=== PATIENT | male | born 1955 | race Caucasian/White ===

== ENCOUNTER → 2021-11-18 | Outpatient (CLI) | payer OTHER ==
[~2021-11-18] MED LIST: CENTRUM ADULTS1 EACH PO; FENTANYL1 EAC3 TD; FLOMAX0.4 MG PO; IBUPROFEN600 M1 PO; LEVOFLOXACIN750 MG PO; ONDANSETRON HYDR4 MG PO; PRILOSEC OTC20 MG PO; ROXICODONE 55 MG/TAB PO; TEMAZEPAM PO
== END ==
LOC: RAD 09:00
DX: C25.0 Malignant neoplasm of head of pancreas (principal); J98.11 Atelectasis; J43.9 Emphysema, unspecified
CPT/HCPCS: Q9967

== ENCOUNTER 2021-12-15 13:08 | Emergency (ER) | payer OTHER ==
[~2021-12-15] VITALS: Ht 177.8 cm; Wt 63.6 kg
[2021-12-15] MEDS ORDERED: FENTANYL1 EAC3 TD (13:39)
[2021-12-15] MEDS ORDERED: TEMAZEPAM PO (13:39)
[2021-12-15] MEDS ORDERED: ROXICODONE 55 MG/TAB PO ×2 (13:40→16:02)
[2021-12-15 14:05] LABS: ALBUMIN 3.8 g/dL (3.4-4.8)
[2021-12-15 14:06] LABS: POTASSIUM 3.9 mmol/L (3.5-5.1)
[2021-12-15 14:07] LABS: CALCIUM 9.5 mg/dL (8.3-10.5)
[2021-12-15 14:08] LABS: TOTAL PROTEIN 7.6 g/dL (6.2-8.1)
[2021-12-15 14:10] LABS: TOTAL BILIRUBIN 0.7 mg/dL (0.2-1.2)
[2021-12-15 14:21] LABS: BASO # 0.08 K/mm3 (0.02-0.10); EOS # 0.12 K/mm3 (0.04-0.40); EOS % 1.3 % (0.0-4.0); HEMATOCRIT 44.5 % (42.0-52.0); HEMOGLOBIN 14.9 g/dL (13.5-18.0); MEAN CELL VOLUME 95 fl (78-100); MEAN CORPUSCULAR HEMOGLOBIN 32 pg (27-31); MEAN CORPUSCULAR HGB CONC 34 g/dL (33-37); MEAN PLATELET VOLUME 9.5 fl (7.4-10.4); MONO # 0.78 K/mm3 (0.20-0.80); NEU # 5.38 K/mm3 (1.40-6.50); PLATELET COUNT 487 K/mm3 (130-400); RED BLOOD COUNT 4.71 M/mm3 (4.20-5.60); RED CELL DISTRIBUTION WIDTH 13.2 % (11.5-14.5); WHITE BLOOD COUNT 9.2 K/mm3 (4.8-10.8)
[2021-12-15 15:08] LABS: URINE APPEARANCE CLEAR; URINE BILIRUBIN NEGATIVE (NEGATIVE); URINE BLOOD NEGATIVE (NEGATIVE); URINE COLOR YELLOW; URINE GLUCOSE NEGATIVE (NEGATIVE); URINE KETONE NEGATIVE (NEGATIVE); URINE LEUKOCYTE ESTERASE NEGATIVE (NEGATIVE); URINE NITRATE NEGATIVE (NEGATIVE); URINE PROTEIN(semi-quant) 1+ (NEGATIVE); URINE UROBILINOGEN 1 mg/dL (NORMAL)
[2021-12-15 15:09] LABS: URINE MUCUS PRESENT (NOT PRESENT)
[2021-12-15] MEDS ORDERED: LEVOFLOXACIN750 MG PO (15:59)
[2021-12-15 16:08] VITALS: BP 103/67
== END 2021-12-15 16:23 | disposition home or self-care (01) ==
LOC: ED 13:08
PROVIDERS: Nurse Practitioner
DX: T81.49XA Infection following a procedure, other surgical site, initial encounter (principal); T81.30XA Disruption of wound, unspecified, initial encounter; Z98.890 Other specified postprocedural states; Z20.822 Contact with and (suspected) exposure to COVID-19
CPT/HCPCS: J2270; J2405; Q9967

== ENCOUNTER → 2022-01-16 | Outpatient (CLI) | payer OTHER ==
[~2022-01-16] MED LIST changes: -CENTRUM ADULTS1 EACH PO; -FLOMAX0.4 MG PO; -IBUPROFEN600 M1 PO; -ONDANSETRON HYDR4 MG PO; -PRILOSEC OTC20 MG PO
[2022-01-16 11:42] LABS: BASO # 0.03 K/mm3 (0.02-0.10); EOS # 0.21 K/mm3 (0.04-0.40); EOS % 3.4 % (0.0-4.0); HEMATOCRIT 40.9 % (42.0-52.0); HEMOGLOBIN 13.3 g/dL (13.5-18.0); LYMPH# 2.04 K/mm3 (1.50-4.00); MEAN CELL VOLUME 96 fl (78-100); MEAN CORPUSCULAR HEMOGLOBIN 31 pg (27-31); MEAN CORPUSCULAR HGB CONC 33 g/dL (33-37); MEAN PLATELET VOLUME 9.4 fl (7.4-10.4); MONO # 0.69 K/mm3 (0.20-0.80); NEU # 3.28 K/mm3 (1.40-6.50); PLATELET COUNT 230 K/mm3 (130-400); RED BLOOD COUNT 4.25 M/mm3 (4.20-5.60); RED CELL DISTRIBUTION WIDTH 14.4 % (11.5-14.5); WHITE BLOOD COUNT 6.3 K/mm3 (4.8-10.8)
[2022-01-16 11:59] LABS: POTASSIUM 3.9 mmol/L (3.5-5.1)
[2022-01-16 12:00] LABS: CALCIUM 8.2 mg/dL (8.3-10.5)
[2022-01-16 12:01] LABS: TOTAL PROTEIN 5.3 g/dL (6.2-8.1)
[2022-01-16 12:03] LABS: TOTAL BILIRUBIN 0.4 mg/dL (0.2-1.2)
== END ==
LOC: LAB 11:19
PROVIDERS: Internal Medicine
DX: C25.0 Malignant neoplasm of head of pancreas (principal)

== ENCOUNTER → 2022-01-22 | Outpatient (CLI) | payer OTHER ==
[~2022-01-22] VITALS: Ht 177.8 cm; Wt 63.6 kg
== END ==
LOC: AMSURD 12:42
DX: C25.0 Malignant neoplasm of head of pancreas (principal)
CPT/HCPCS: J1644

== ENCOUNTER → 2022-01-30 | Outpatient (CLI) | payer OTHER ==
[2022-01-30 13:44] LABS: HEMATOCRIT 42.8 % (42.0-52.0); HEMOGLOBIN 14.3 g/dL (13.5-18.0); MEAN PLATELET VOLUME 9.5 fl (7.4-10.4); RED BLOOD COUNT 4.64 M/mm3 (4.20-5.60); RED CELL DISTRIBUTION WIDTH 14.3 % (11.5-14.5); WHITE BLOOD COUNT 6.1 K/mm3 (4.8-10.8)
== END ==
LOC: LAB 13:31
PROVIDERS: Internal Medicine
DX: C25.0 Malignant neoplasm of head of pancreas (principal)

== ENCOUNTER → 2022-02-13 | Outpatient (CLI) | payer OTHER ==
[2022-02-13 13:34] LABS: BASO # 0.03 K/mm3 (0.02-0.10); EOS # 0.11 K/mm3 (0.04-0.40); EOS % 2.4 % (0.0-4.0); HEMATOCRIT 42.2 % (42.0-52.0); HEMOGLOBIN 14.1 g/dL (13.5-18.0); LYMPH# 1.94 K/mm3 (1.50-4.00); MEAN CELL VOLUME 92 fl (78-100); MEAN CORPUSCULAR HEMOGLOBIN 31 pg (27-31); MEAN CORPUSCULAR HGB CONC 33 g/dL (33-37); MONO # 0.47 K/mm3 (0.20-0.80); NEU # 2.01 K/mm3 (1.40-6.50); PLATELET COUNT 185 K/mm3 (130-400); RED BLOOD COUNT 4.58 M/mm3 (4.20-5.60); RED CELL DISTRIBUTION WIDTH 15.2 % (11.5-14.5); WHITE BLOOD COUNT 4.6 K/mm3 (4.8-10.8)
[2022-02-13 13:41] LABS: ALBUMIN 3.7 g/dL (3.4-4.8); POTASSIUM 3.6 mmol/L (3.5-5.1)
[2022-02-13 13:42] LABS: CALCIUM 9.2 mg/dL (8.3-10.5)
[2022-02-13 13:43] LABS: TOTAL PROTEIN 6.4 g/dL (6.2-8.1)
[2022-02-13 13:45] LABS: TOTAL BILIRUBIN 0.4 mg/dL (0.2-1.2)
== END ==
LOC: LAB 13:19
PROVIDERS: Internal Medicine
DX: C25.0 Malignant neoplasm of head of pancreas (principal)

== ENCOUNTER → 2022-03-03 | Outpatient (CLI) | payer OTHER ==
[~2022-03-03] MED LIST changes: +CENTRUM ADULTS1 EACH PO; +FLOMAX0.4 MG PO; +IBUPROFEN600 M1 PO; +ONDANSETRON HYDR4 MG PO; +PRILOSEC OTC20 MG PO
[2022-03-03 16:10] LABS: BASO # 0.05 K/mm3 (0.02-0.10); EOS # 0.05 K/mm3 (0.04-0.40); EOS % 1.4 % (0.0-4.0); HEMOGLOBIN 12.8 g/dL (13.5-18.0); LYMPH# 2.01 K/mm3 (1.50-4.00); MEAN CELL VOLUME 94 fl (78-100); MEAN CORPUSCULAR HEMOGLOBIN 31 pg (27-31); MEAN CORPUSCULAR HGB CONC 33 g/dL (33-37); MEAN PLATELET VOLUME 9.5 fl (7.4-10.4); MONO # 0.42 K/mm3 (0.20-0.80); NEU # 1.07 K/mm3 (1.40-6.50); PLATELET COUNT 217 K/mm3 (130-400); RED BLOOD COUNT 4.16 M/mm3 (4.20-5.60); RED CELL DISTRIBUTION WIDTH 16.6 % (11.5-14.5); WHITE BLOOD COUNT 3.6 K/mm3 (4.8-10.8)
[2022-03-03 16:34] LABS: ALBUMIN 3.2 g/dL (3.4-4.8); POTASSIUM 3.5 mmol/L (3.5-5.1)
[2022-03-03 16:36] LABS: CALCIUM 8.8 mg/dL (8.3-10.5)
[2022-03-03 16:37] LABS: TOTAL PROTEIN 5.9 g/dL (6.2-8.1)
[2022-03-03 16:39] LABS: TOTAL BILIRUBIN 0.3 mg/dL (0.2-1.2)
== END ==
LOC: LAB 15:52
PROVIDERS: Internal Medicine
DX: C25.9 Malignant neoplasm of pancreas, unspecified (principal)

== ENCOUNTER → 2022-03-08 | Outpatient (CLI) | payer OTHER ==
[~2022-03-08] VITALS: Ht 177.8 cm; Wt 63.6 kg
[2022-03-08 13:10] VITALS: BP 85/95
== END ==
LOC: AMSURD 10:29
DX: C25.9 Malignant neoplasm of pancreas, unspecified (principal)
CPT/HCPCS: J1644

== ENCOUNTER → 2022-03-17 | Outpatient (CLI) | payer OTHER ==
[2022-03-17 16:28] LABS: ALBUMIN 3.3 g/dL (3.4-4.8); POTASSIUM 3.6 mmol/L (3.5-5.1)
[2022-03-17 16:30] LABS: CALCIUM 8.6 mg/dL (8.3-10.5)
[2022-03-17 16:31] LABS: TOTAL PROTEIN 5.8 g/dL (6.2-8.1)
[2022-03-17 16:33] LABS: TOTAL BILIRUBIN 0.3 mg/dL (0.2-1.2)
[2022-03-17 16:43] LABS: BASO # 0.04 K/mm3 (0.02-0.10); EOS # 0.05 K/mm3 (0.04-0.40); HEMOGLOBIN 12.7 g/dL (13.5-18.0); LYMPH# 2.67 K/mm3 (1.50-4.00); MEAN CELL VOLUME 95 fl (78-100); MEAN CORPUSCULAR HEMOGLOBIN 32 pg (27-31); MEAN CORPUSCULAR HGB CONC 33 g/dL (33-37); MEAN PLATELET VOLUME 9.7 fl (7.4-10.4); MONO # 0.52 K/mm3 (0.20-0.80); NEU # 1.77 K/mm3 (1.40-6.50); PLATELET COUNT 183 K/mm3 (130-400); RED BLOOD COUNT 4.02 M/mm3 (4.20-5.60); RED CELL DISTRIBUTION WIDTH 17.7 % (11.5-14.5); WHITE BLOOD COUNT 5.1 K/mm3 (4.8-10.8)
== END ==
LOC: LAB 16:11
PROVIDERS: Internal Medicine
DX: C25.9 Malignant neoplasm of pancreas, unspecified (principal)

== ENCOUNTER → 2022-03-22 | Outpatient (CLI) | payer OTHER ==
[~2022-03-22] VITALS: Ht 177.8 cm; Wt 63.6 kg
[2022-03-22 13:30] VITALS: BP 94/76
== END ==
LOC: AMSURD 03-20 18:40
DX: C25.0 Malignant neoplasm of head of pancreas (principal)
CPT/HCPCS: J1644

== ENCOUNTER → 2022-03-30 | Outpatient (CLI) | payer OTHER ==
[2022-03-30 10:32] LABS: BASO # 0.03 K/mm3 (0.02-0.10); EOS # 0.09 K/mm3 (0.04-0.40); EOS % 1.8 % (0.0-4.0); HEMATOCRIT 38.6 % (42.0-52.0); HEMOGLOBIN 12.5 g/dL (13.5-18.0); LYMPH# 1.99 K/mm3 (1.50-4.00); MEAN CELL VOLUME 98 fl (78-100); MEAN CORPUSCULAR HEMOGLOBIN 32 pg (27-31); MEAN CORPUSCULAR HGB CONC 32 g/dL (33-37); MEAN PLATELET VOLUME 9.8 fl (7.4-10.4); MONO # 0.63 K/mm3 (0.20-0.80); NEU # 2.13 K/mm3 (1.40-6.50); PLATELET COUNT 170 K/mm3 (130-400); RED BLOOD COUNT 3.94 M/mm3 (4.20-5.60); RED CELL DISTRIBUTION WIDTH 18.5 % (11.5-14.5); WHITE BLOOD COUNT 4.9 K/mm3 (4.8-10.8)
[2022-03-30 10:36] LABS: ALBUMIN 3.2 g/dL (3.4-4.8); POTASSIUM 3.8 mmol/L (3.5-5.1)
[2022-03-30 10:38] LABS: CALCIUM 8.9 mg/dL (8.3-10.5)
[2022-03-30 10:39] LABS: TOTAL PROTEIN 5.8 g/dL (6.2-8.1)
[2022-03-30 14:05] LABS: TOTAL BILIRUBIN 0.2 mg/dL (0.2-1.2)
== END ==
LOC: LAB 08:48
PROVIDERS: Internal Medicine
DX: C25.9 Malignant neoplasm of pancreas, unspecified (principal)

== ENCOUNTER → 2022-04-05 | Outpatient (CLI) | payer OTHER ==
[~2022-04-05] VITALS: Ht 177.8 cm; Wt 63.6 kg
[2022-04-05 14:24] VITALS: BP 93/61
== END ==
LOC: AMSURD 13:56
DX: Z45.2 Encounter for adjustment and management of vascular access device (principal)
CPT/HCPCS: J1644

== ENCOUNTER → 2022-04-14 | Outpatient (CLI) | payer OTHER | LOC: LAB 11:36 | DX: C25.0 Malignant neoplasm of head of pancreas (principal) ==

== ENCOUNTER → 2022-04-15 | Outpatient (CLI) | payer OTHER | LOC: RAD 08:47 | DX: C25.9 Malignant neoplasm of pancreas, unspecified (principal) | CPT/HCPCS: J1644; Q9967 ==

== ENCOUNTER → 2022-04-20 | Outpatient (CLI) | payer OTHER ==
[2022-04-20 11:44] LABS: BASO # 0.03 K/mm3 (0.02-0.10); EOS # 0.05 K/mm3 (0.04-0.40); EOS % 1.4 % (0.0-4.0); HEMATOCRIT 39.6 % (42.0-52.0); LYMPH# 1.49 K/mm3 (1.50-4.00); MEAN CELL VOLUME 101 fl (78-100); MEAN CORPUSCULAR HEMOGLOBIN 33 pg (27-31); MEAN CORPUSCULAR HGB CONC 33 g/dL (33-37); MEAN PLATELET VOLUME 9.4 fl (7.4-10.4); MONO # 0.56 K/mm3 (0.20-0.80); NEU # 1.32 K/mm3 (1.40-6.50); PLATELET COUNT 178 K/mm3 (130-400); RED BLOOD COUNT 3.93 M/mm3 (4.20-5.60); RED CELL DISTRIBUTION WIDTH 18.7 % (11.5-14.5); WHITE BLOOD COUNT 3.5 K/mm3 (4.8-10.8)
[2022-04-20 11:55] LABS: ALBUMIN 3.3 g/dL (3.4-4.8)
[2022-04-20 11:56] LABS: POTASSIUM 4.3 mmol/L (3.5-5.1)
[2022-04-20 11:58] LABS: TOTAL PROTEIN 5.8 g/dL (6.2-8.1)
[2022-04-20 12:00] LABS: TOTAL BILIRUBIN 0.3 mg/dL (0.2-1.2)
== END ==
LOC: LAB 11:16
PROVIDERS: Internal Medicine
DX: C25.9 Malignant neoplasm of pancreas, unspecified (principal)

== ENCOUNTER → 2022-05-04 | Outpatient (CLI) | payer OTHER ==
[2022-05-04 13:31] LABS: HEMATOCRIT 33.8 % (42.0-52.0); HEMOGLOBIN 11.3 g/dL (13.5-18.0); MEAN PLATELET VOLUME 9.7 fl (7.4-10.4); RED BLOOD COUNT 3.37 M/mm3 (4.20-5.60); RED CELL DISTRIBUTION WIDTH 16.1 % (11.5-14.5); WHITE BLOOD COUNT 3.9 K/mm3 (4.8-10.8)
[2022-05-04 13:41] LABS: ALBUMIN 3.3 g/dL (3.4-4.8)
[2022-05-04 13:42] LABS: POTASSIUM 3.5 mmol/L (3.5-5.1)
[2022-05-04 13:43] LABS: CALCIUM 8.7 mg/dL (8.3-10.5)
[2022-05-04 13:44] LABS: TOTAL PROTEIN 5.7 g/dL (6.2-8.1)
[2022-05-04 13:46] LABS: TOTAL BILIRUBIN 0.3 mg/dL (0.2-1.2)
== END ==
LOC: LAB 13:14
PROVIDERS: Internal Medicine
DX: C25.0 Malignant neoplasm of head of pancreas (principal)

== ENCOUNTER 2022-05-10 12:23 | Outpatient (RCR) | payer OTHER ==
[~2022-05-10] VITALS: Ht 177.8 cm; Wt 63.6 kg
== END 2022-05-14 | disposition home or self-care (01) ==
LOC: AMSURD
DX: C25.0 Malignant neoplasm of head of pancreas (principal)
CPT/HCPCS: J1644

== ENCOUNTER → 2022-05-19 | Outpatient (CLI) | payer OTHER ==
[2022-05-19 12:13] LABS: HEMATOCRIT 34.5 % (42.0-52.0); HEMOGLOBIN 11.6 g/dL (13.5-18.0); MEAN PLATELET VOLUME 9.8 fl (7.4-10.4); RED BLOOD COUNT 3.38 M/mm3 (4.20-5.60); WHITE BLOOD COUNT 5.2 K/mm3 (4.8-10.8)
== END ==
LOC: LAB 11:59
PROVIDERS: Internal Medicine
DX: C25.0 Malignant neoplasm of head of pancreas (principal)

== ENCOUNTER → 2022-06-01 | Outpatient (CLI) | payer OTHER ==
[2022-06-01 12:53] LABS: BASO # 0.02 K/mm3 (0.02-0.10); EOS # 0.07 K/mm3 (0.04-0.40); EOS % 1.9 % (0.0-4.0); HEMOGLOBIN 12.1 g/dL (13.5-18.0); LYMPH# 1.81 K/mm3 (1.50-4.00); MEAN CELL VOLUME 104 fl (78-100); MEAN CORPUSCULAR HEMOGLOBIN 34 pg (27-31); MEAN CORPUSCULAR HGB CONC 33 g/dL (33-37); MEAN PLATELET VOLUME 9.9 fl (7.4-10.4); MONO # 0.42 K/mm3 (0.20-0.80); NEU # 1.42 K/mm3 (1.40-6.50); PLATELET COUNT 122 K/mm3 (130-400); RED BLOOD COUNT 3.57 M/mm3 (4.20-5.60); RED CELL DISTRIBUTION WIDTH 14.6 % (11.5-14.5); WHITE BLOOD COUNT 3.8 K/mm3 (4.8-10.8)
[2022-06-01 13:07] LABS: ALBUMIN 3.4 g/dL (3.4-4.8); POTASSIUM 4.3 mmol/L (3.5-5.1)
[2022-06-01 13:10] LABS: TOTAL PROTEIN 5.8 g/dL (6.2-8.1)
[2022-06-01 13:12] LABS: TOTAL BILIRUBIN 0.3 mg/dL (0.2-1.2)
== END ==
LOC: LAB 12:42
PROVIDERS: Internal Medicine
DX: C25.0 Malignant neoplasm of head of pancreas (principal)

== ENCOUNTER 2022-06-07 12:06 | Outpatient (RCR) | payer OTHER ==
[2022-05-24 12:30] VITALS: BP 88/50
[~2022-06-07] VITALS: Ht 177.8 cm; Wt 63.6 kg
[2022-06-07 12:32] VITALS: BP 108/66
== END 2022-06-14 | disposition home or self-care (01) ==
LOC: AMSURD
DX: C25.0 Malignant neoplasm of head of pancreas (principal)
CPT/HCPCS: J1644

== ENCOUNTER → 2022-06-15 | Outpatient (CLI) | payer OTHER ==
[2022-06-15 11:37] LABS: BASO # 0.01 K/mm3 (0.02-0.10); EOS # 0.02 K/mm3 (0.04-0.40); EOS % 0.3 % (0.0-4.0); HEMATOCRIT 37.6 % (42.0-52.0); HEMOGLOBIN 12.5 g/dL (13.5-18.0); LYMPH# 1.81 K/mm3 (1.50-4.00); MEAN CELL VOLUME 102 fl (78-100); MEAN CORPUSCULAR HEMOGLOBIN 34 pg (27-31); MEAN CORPUSCULAR HGB CONC 33 g/dL (33-37); MEAN PLATELET VOLUME 9.5 fl (7.4-10.4); MONO # 0.72 K/mm3 (0.20-0.80); NEU # 3.92 K/mm3 (1.40-6.50); PLATELET COUNT 117 K/mm3 (130-400); RED BLOOD COUNT 3.69 M/mm3 (4.20-5.60); RED CELL DISTRIBUTION WIDTH 14.7 % (11.5-14.5); WHITE BLOOD COUNT 6.5 K/mm3 (4.8-10.8)
[2022-06-15 11:46] LABS: ALBUMIN 3.5 g/dL (3.4-4.8); POTASSIUM 4.3 mmol/L (3.5-5.1)
[2022-06-15 11:47] LABS: CALCIUM 8.9 mg/dL (8.3-10.5)
[2022-06-15 11:48] LABS: TOTAL PROTEIN 6.2 g/dL (6.2-8.1)
[2022-06-15 11:50] LABS: TOTAL BILIRUBIN 0.4 mg/dL (0.2-1.2)
== END ==
LOC: LAB 11:19
PROVIDERS: Internal Medicine
DX: C25.0 Malignant neoplasm of head of pancreas (principal)

== ENCOUNTER → 2022-06-21 | Outpatient (CLI) | payer OTHER, MEDICARE ==
[~2022-06-21] VITALS: Ht 177.8 cm; Wt 63.6 kg
[2022-06-21 11:35] VITALS: BP 90/75
== END ==
LOC: AMSURD 11:17
DX: C25.0 Malignant neoplasm of head of pancreas (principal)
CPT/HCPCS: J1644

== ENCOUNTER → 2022-06-29 | Outpatient (CLI) | payer OTHER, MEDICARE ==
[2022-06-29 12:45] LABS: ALBUMIN 3.4 g/dL (3.4-4.8); POTASSIUM 3.6 mmol/L (3.5-5.1)
[2022-06-29 12:47] LABS: CALCIUM 8.6 mg/dL (8.3-10.5)
[2022-06-29 12:48] LABS: TOTAL PROTEIN 6.2 g/dL (6.2-8.1)
[2022-06-29 13:07] LABS: BASO # 0.04 K/mm3 (0.02-0.10); EOS # 0.06 K/mm3 (0.04-0.40); EOS % 1.6 % (0.0-4.0); HEMATOCRIT 38.7 % (42.0-52.0); HEMOGLOBIN 12.7 g/dL (13.5-18.0); LYMPH# 1.78 K/mm3 (1.50-4.00); MEAN CELL VOLUME 103 fl (78-100); MEAN CORPUSCULAR HEMOGLOBIN 34 pg (27-31); MEAN CORPUSCULAR HGB CONC 33 g/dL (33-37); MEAN PLATELET VOLUME 10.1 fl (7.4-10.4); MONO # 0.46 K/mm3 (0.20-0.80); NEU # 1.37 K/mm3 (1.40-6.50); PLATELET COUNT 140 K/mm3 (130-400); RED BLOOD COUNT 3.75 M/mm3 (4.20-5.60); RED CELL DISTRIBUTION WIDTH 14.8 % (11.5-14.5); WHITE BLOOD COUNT 3.7 K/mm3 (4.8-10.8)
[2022-06-29 14:19] LABS: TOTAL BILIRUBIN 0.3 mg/dL (0.2-1.2)
== END ==
LOC: LAB 12:04
PROVIDERS: Internal Medicine
DX: C25.0 Malignant neoplasm of head of pancreas (principal)

== ENCOUNTER → 2022-07-05 | Outpatient (CLI) | payer OTHER, MEDICARE ==
[~2022-07-05] VITALS: Ht 177.8 cm; Wt 63.6 kg
== END ==
LOC: AMSURD 10:48
DX: C25.0 Malignant neoplasm of head of pancreas (principal)
CPT/HCPCS: J1644

== ENCOUNTER → 2022-07-09 | Outpatient (CLI) | payer OTHER, MEDICARE ==
[2022-07-09 09:19] LABS: HEMATOCRIT 38.7 % (42.0-52.0); HEMOGLOBIN 12.7 g/dL (13.5-18.0); MEAN CELL VOLUME 104 fl (78-100); MEAN CORPUSCULAR HEMOGLOBIN 34 pg (27-31); MEAN CORPUSCULAR HGB CONC 33 g/dL (33-37); MEAN PLATELET VOLUME 9.5 fl (7.4-10.4); PLATELET COUNT 147 K/mm3 (130-400); RED BLOOD COUNT 3.74 M/mm3 (4.20-5.60); RED CELL DISTRIBUTION WIDTH 14.6 % (11.5-14.5); WHITE BLOOD COUNT 3.1 K/mm3 (4.8-10.8)
[2022-07-09 09:29] LABS: ALBUMIN 3.3 g/dL (3.4-4.8); POTASSIUM 3.9 mmol/L (3.5-5.1)
[2022-07-09 09:30] LABS: CALCIUM 8.7 mg/dL (8.3-10.5)
[2022-07-09 09:33] LABS: TOTAL BILIRUBIN 0.4 mg/dL (0.2-1.2)
[2022-07-09 10:29] LABS: LYMPHOCYTE 23 % (20-51); MONOCYTE 5 % (3-10)
== END ==
LOC: LAB 08:57
PROVIDERS: Internal Medicine
DX: C25.0 Malignant neoplasm of head of pancreas (principal)

== ENCOUNTER → 2022-07-10 | Outpatient (CLI) | payer OTHER, MEDICARE | LOC: RAD 09:53 | DX: C25.0 Malignant neoplasm of head of pancreas (principal); J43.9 Emphysema, unspecified; R91.1 Solitary pulmonary nodule | CPT/HCPCS: Q9967 ==

== ENCOUNTER → 2022-10-27 | Outpatient (CLI) | payer OTHER, MEDICARE | LOC: RAD 08:21 | DX: C25.0 Malignant neoplasm of head of pancreas (principal); J43.9 Emphysema, unspecified | CPT/HCPCS: Q9967 ==

== ENCOUNTER → 2023-02-04 | Outpatient (CLI) | payer OTHER ==
[2023-02-04 09:36] LABS: BASO # 0.03 K/mm3 (0.02-0.10); EOS # 0.13 K/mm3 (0.04-0.40); EOS % 2.5 % (0.0-4.0); HEMATOCRIT 47.7 % (42.0-52.0); HEMOGLOBIN 15.3 g/dL (13.5-18.0); LYMPH# 2.23 K/mm3 (1.50-4.00); MEAN CELL VOLUME 100 fl (78-100); MEAN CORPUSCULAR HEMOGLOBIN 32 pg (27-31); MEAN CORPUSCULAR HGB CONC 32 g/dL (33-37); MEAN PLATELET VOLUME 9.4 fl (7.4-10.4); MONO # 0.48 K/mm3 (0.20-0.80); NEU # 2.26 K/mm3 (1.40-6.50); PLATELET COUNT 205 K/mm3 (130-400); RED BLOOD COUNT 4.76 M/mm3 (4.20-5.60); RED CELL DISTRIBUTION WIDTH 14.3 % (11.5-14.5); WHITE BLOOD COUNT 5.1 K/mm3 (4.8-10.8)
[2023-02-04 09:39] LABS: ALBUMIN 3.8 g/dL (3.4-4.8)
[2023-02-04 09:40] LABS: POTASSIUM 4.2 mmol/L (3.5-5.1)
[2023-02-04 09:42] LABS: TOTAL PROTEIN 6.7 g/dL (6.2-8.1)
[2023-02-04 09:44] LABS: TOTAL BILIRUBIN 0.3 mg/dL (0.2-1.2)
== END ==
LOC: LAB 09:20
PROVIDERS: Internal Medicine
DX: C25.0 Malignant neoplasm of head of pancreas (principal)

== ENCOUNTER → 2023-02-08 | Outpatient (CLI) | payer OTHER, MEDICARE | LOC: RAD 09:37 | DX: C25.0 Malignant neoplasm of head of pancreas (principal) ==

== ENCOUNTER → 2023-11-19 | Outpatient (CLI) | payer OTHER | LOC: LAB 11:26 | DX: E78.2 Mixed hyperlipidemia (principal); R73.02 Impaired glucose tolerance (oral) ==

== ENCOUNTER → 2024-01-27 | Outpatient (CLI) | payer OTHER ==
[2024-01-27 12:13] LABS: BASO # 0.03 K/mm3 (0.02-0.10); EOS # 0.09 K/mm3 (0.04-0.40); EOS % 1.2 % (0.0-4.0); HEMATOCRIT 48.4 % (42.0-52.0); HEMOGLOBIN 15.8 g/dL (13.5-18.0); LYMPH# 2.12 K/mm3 (1.50-4.00); MEAN CELL VOLUME 100 fl (78-100); MEAN CORPUSCULAR HEMOGLOBIN 33 pg (27-31); MEAN CORPUSCULAR HGB CONC 33 g/dL (33-37); MEAN PLATELET VOLUME 9.5 fl (7.4-10.4); NEU # 4.55 K/mm3 (1.40-6.50); PLATELET COUNT 181 K/mm3 (130-400); RED BLOOD COUNT 4.86 M/mm3 (4.20-5.60); WHITE BLOOD COUNT 7.4 K/mm3 (4.8-10.8)
[2024-01-27 12:27] LABS: ALBUMIN 3.9 g/dL (3.4-4.8)
[2024-01-27 12:29] LABS: CALCIUM 9.3 mg/dL (8.3-10.5)
[2024-01-27 12:30] LABS: TOTAL PROTEIN 6.8 g/dL (6.2-8.1)
[2024-01-27 12:32] LABS: TOTAL BILIRUBIN 0.5 mg/dL (0.2-1.2)
== END ==
LOC: LAB 10:58
PROVIDERS: Nurse Practitioner Family
DX: C25.0 Malignant neoplasm of head of pancreas (principal)

== ENCOUNTER → 2024-02-07 | Outpatient (CLI) | payer OTHER ==
[~2024-02-07] MED LIST changes: +Iohexol 300 - 100 ML VIAL IV ONE
== END ==
LOC: RAD 08:35
DX: C25.0 Malignant neoplasm of head of pancreas (principal)
CPT/HCPCS: Q9967

== ENCOUNTER → 2024-06-02 | Outpatient (CLI) | payer OTHER | LOC: RAD 14:17 | DX: C25.0 Malignant neoplasm of head of pancreas (principal); R22.1 Localized swelling, mass and lump, neck; Z85.820 Personal history of malignant melanoma of skin | CPT/HCPCS: Q9967 ==

== ENCOUNTER → 2024-09-01 | Outpatient (CLI) | payer OTHER ==
[~2024-09-01] MED LIST changes: -Iohexol 300 - 100 ML VIAL IV ONE
[2024-09-01 14:04] LABS: BASO # 0.02 K/mm3 (0.02-0.10); EOS # 0.11 K/mm3 (0.04-0.40); EOS % 1.7 % (0.0-4.0); HEMATOCRIT 45.4 % (42.0-52.0); HEMOGLOBIN 15.3 g/dL (13.5-18.0); LYMPH# 2.39 K/mm3 (1.50-4.00); MEAN CELL VOLUME 99 fl (78-100); MEAN CORPUSCULAR HEMOGLOBIN 34 pg (27-31); MEAN CORPUSCULAR HGB CONC 34 g/dL (33-37); MEAN PLATELET VOLUME 9.2 fl (7.4-10.4); MONO # 0.52 K/mm3 (0.20-0.80); NEU # 3.24 K/mm3 (1.40-6.50); PLATELET COUNT 186 K/mm3 (130-400); RED BLOOD COUNT 4.57 M/mm3 (4.20-5.60); RED CELL DISTRIBUTION WIDTH 12.9 % (11.5-14.5); WHITE BLOOD COUNT 6.3 K/mm3 (4.8-10.8)
[2024-09-01 14:11] LABS: ALBUMIN 3.9 g/dL (3.4-4.8)
[2024-09-01 14:12] LABS: CALCIUM 8.8 mg/dL (8.3-10.5)
[2024-09-01 14:14] LABS: TOTAL PROTEIN 6.5 g/dL (6.2-8.1)
[2024-09-01 14:15] LABS: TOTAL BILIRUBIN 0.6 mg/dL (0.2-1.2)
== END ==
LOC: LAB 13:51
PROVIDERS: Nurse Practitioner Family
DX: C25.0 Malignant neoplasm of head of pancreas (principal)

== ENCOUNTER → 2025-01-08 | Outpatient (CLI) | payer OTHER | LOC: LAB 08:44 | DX: Z12.5 Encounter for screening for malignant neoplasm of prostate (principal); R73.03 Prediabetes; E78.2 Mixed hyperlipidemia ==